=== PATIENT | male | born 1980 | race Caucasian/White ===

== ENCOUNTER 2017-06-24 01:07 | Emergency (ER) | payer OTHER ==
[~2017-06-24] VITALS: Ht 188 cm; Wt 93.0 kg
[2017-06-24 01:09] VITALS: TEMP 36.8; Ht 188 cm; Wt 93.0 kg
--- NOTE | 2017-06-24 01:46 | EMERGENCY ROOM VISIT NOTE ---
History Report prepared by Eduardo: Teddy Henao Under the Supervision of: Dr. Mesha Duran D.O. First contact with patient: 01:13 Chief Complaint: MENTAL HEALTH EVALUATION Stated Complaint: DEPRESSED,SUICIDAL THOUGHTS-DAY DREAMS OF IT History of Present Illness The patient is a 36 year old male who presents to the Emergency Room with concerns over his worsening mental status. The patient states that his girlfriend thought he should come into the Emergency Department this evening due to recent suicidal ideations. Per the girlfriend, the patient stated that he had a specific plan to hang himself this evening. She also notes that he has been having mood swings and his tempers have been flaring. The plan concerned the girlfriend because he has attempted to hang himself in the past. He has a history for bipolar disorder, depression, and anxiety. He is on medications for his psych disorders, but made note that his [place] and Wellbutrin prescriptions have not been filled. The patient recently moved to the area from [place] and has not found a new psychiatrist yet. He attempted to orange picker his prescriptions today and the [place] and Wellbutrin were not filled. The patient admits to drinking some alcohol throughout the past two weeks. He also admits to abusing Suboxone in the past, but has not recently. He has a history of turrets and ADHD. Source of History: patient, spouse/significant other Onset: This evening (suicidal threats) Position: other (Psych) Quality: other (Mental Status) Note: Positive suicidal ideation with plan. Review of Systems See HPI for pertinent positives & negatives. A total of 10 systems reviewed and were otherwise negative. Past Medical & Surgical Medical Problems: (1) ADHD (2) Anxiety (3) Bipolar disorder (4) Depression ADHD Anxiety Bipolar disorder Depression Family History Diabetes mellitus Hypertension Kidney disease Kidney stones Social History Smoking Status: Former Smoker Alcohol Use: occasionally Drug Use: other (Suboxone (past)) Marital Status: in relationship Housing Status: lives with significant other Current/Historical Medications Scheduled Bupropion (Wellbutrin Sr), 150 MG PO HS Bupropion (Wellbutrin-Xl), 300 MG PO QAM Buspirone Hcl (Buspar), 15 MG PO BID Doxepin Hcl (Doxepin), 100 MG PO QPM Fluoxetine (Prozac), 40 MG PO DAILY Gabapentin (Neurontin), 100 MG PO QID [place] Carbonate ([place] Carbonate), 150 MG PO DAILY Miscellaneous Medications Gabapentin (Neurontin), 400 MG PO Allergies Coded Allergies: Penicillins (Verified Allergy, Unknown, CHILDHOOD ALLERGY, 06/24/17) Physical Exam Vital Signs Date Time Temp Pulse Resp B/P (MAP) Pulse Ox O2 Delivery O2 Flow Rate FiO2 06/24/17 03:15 84 18 149/76 96 Room Air 06/24/17 01:09 36.8 91 16 155/70 95 Room Air Physical Exam General: Pleasant with obvious tic. HEENT: Head - normocephalic and atraumatic Pupils are equal, round, and reactive to light. Extraocular eye muscles are intact, and sclera are anicteric. Nose - moist nasal mucosa without discharge. Mouth - moist buccal mucosa. Chewing tobacco in lip. Oropharynx is nonerythematous and there is no tonsillar exudate or edema noted. Neck: Supple; no JVD, nuchal rigidity, cervical lymphadenopathy. Heart: Regular rate and rhythm. There is a normal S1 and S2 with no murmurs, clicks, or gallops appreciated. Lungs: Clear to auscultation bilaterally with no wheezes, rales, or rhonchi. Abdomen: Soft, completely nontender, nondistended, with good bowel sounds. There are no palpable pulsatile masses or hepatosplenomegaly. There is no guarding, rigidity, or rebound noted. Extremities: No evidence of cyanosis, clubbing, or edema. There are easily palpable peripheral pulses. Skin: warm and dry with good turgor and no rashes. Multiple tattoos present. Psych: Normal affect, but slightly depressed. Admits to suicidal ideation with plan to hang himself. Medical Decision & Procedures Laboratory Results 06/24/17 01:51 06/24/17 01:51 Test 06/24/17 01:20 06/24/17 01:51 Urine Opiates Screen POS (NEG) Urine Methadone, Qualitative NEG (NEG) Urine Barbiturates NEG (NEG) Urine Phencyclidine (PCP) Level NEG (NEG) Ur Amphetamine/Methamphetamine NEG (NEG) MDMA (Ecstasy) Screen POS (NEG) Urine Benzodiazepines Screen NEG (NEG) Urine Cocaine Metabolite NEG (NEG) Urine Marijuana (THC) NEG (NEG) Red Blood Count 4.52 M/uL (4.7-6.1) Mean Corpuscular Volume 83.0 fL (80-100) Mean Corpuscular Hemoglobin 29.9 pg (25-34) Mean Corpuscular Hemoglobin Concent 36.0 g/dl (32-36) RDW Standard Deviation 39.5 fL (36.4-46.3) RDW Coefficient of Variation 13.1 % (11.5-14.5) Mean Platelet Volume 12.6 fL (7.4-10.4) Platelet Estimate DECREASED Anion Gap 7.0 mmol/L (3-11) Est Creatinine Clear Calc Drug Dose 84.0 ml/min Estimated GFR () 73.9 Estimated GFR (Non- 63.7 BUN/Creatinine Ratio 9.1 (10-20) Calcium Level 8.5 mg/dl (8.5-10.1) Thyroid Stimulating Hormone (TSH) 0.629 uIu/ml (0.300-4.500) Chemistry Specimen Hemolysis Salicylates Level < 1.7 mg/dl (2.8-20) Acetaminophen Level < 2 ug/ml (10-30) [place] Level < 0.2 mMOL/L (0.6-1.2) Ethyl Alcohol mg/dL < 3.0 mg/dl (0-3) Laboratory results per my review. ED Course 0129: Past medical records reviewed. The patient was evaluated in room A5. A complete history and physical exam was performed. Labs were drawn as above. 0333: I spoke with the patient at this time. He is agreeable to inpatient stay at any institution. He notes having chronic low platelets. 0348: The patient is being evaluated by the staff of [address] [place] [address] at this time. 0407: The bed search is underway for the patient's inpatient stay at this time. 0548: Bed search has not resulted in any open beds around the area at this time. [facility] has beds open. [facility] is being called for placement now. 0630: This patient will be signed out to Dr. Baez at change of shift. Medical Decision The patient is a 36 year old male who presents to the Emergency Department for a mental health evaluation. Differential Diagnosis includes; Mediation noncompliance, exacerbation of bipolar, anxiety, suicidal ideation with plan. Laboratory Results were reviewed and show; Normal white count, hemoglobin of 13.5, platelets at 105, normal TSH and renal function, glucose of 110 Toxicology screening reveals; negative Alcohol, Tylenol and Aspirin. [place] is less the 0.2 Positive for opiates and MDMA. The patient has a history of bipolar disorder with depression. He has had previous suicide attempts. He has not been taking some of his medications during a transition from [place] to [facility]. He has had thoughts of pain himself. He is willing to admit himself voluntarily. 201 paperwork has been filled out. The case was signed out to Dr. Baez awaiting bed placement. Impression Primary Impression: Suicidal ideation Scribe Attestation The scribe's documentation has been prepared under my direction and personally reviewed by me in its entirety. I confirm that the note above accurately reflects all work, treatment, procedures, and medical decision making performed by me. Departure Information Dispostion Still a Patient (This patient will be signed out to Dr. Baez at change of shift. ) Referrals No Doctor, Assigned (PCP) Patient Instructions My [facility]
[2017-06-24 02:38] LABS: BUN/CREATININE RATIO 9.1 (10-20); CALCIUM 8.5 mg/dl (8.5-10.1); CREATININE 1.4 mg/dl (0.60-1.40); POTASSIUM 3.8 mmol/L (3.5-5.1); THYROID STIMULATING HORMONE 0.629 uIu/ml (0.300-4.500)
[2017-06-24 02:47] LABS: HEMATOCRIT 37.5 % (42-52); MEAN CORPUSCULAR HEMOGLOBIN 29.9 pg (25-34); MEAN PLATELET VOLUME 12.6 fL (7.4-10.4); PLATELET COUNT 105 K/uL (130-400); PLT ESTIMATE DECREASED; RED BLOOD COUNT 4.52 M/uL (4.7-6.1); WHITE BLOOD COUNT 7.17 K/uL (4.8-10.8)
[2017-06-24 02:55] LABS: BENZODIAZEPINE, URINE NEG (NEG); COCAINE,URINE NEG (NEG); PHENCYCLIDINE, URINE NEG (NEG)
[2017-06-24] MEDS ORDERED: BUSP15TA70 PO (03:09)
[2017-06-24] MEDS ORDERED: FLUO40CA8 PO (03:09)
[2017-06-24] MEDS ORDERED: GABA1CAP5 PO (03:10)
[2017-06-24] MEDS ORDERED: DOXE100C4 PO (03:10)
[2017-06-24] MEDS ORDERED: GABA-112 PO (03:10)
[2017-06-24] MEDS ORDERED: LITH150C6 PO (03:12)
[2017-06-24] MEDS ORDERED: BUPRTAB51 PO (03:12)
[2017-06-24] MEDS ORDERED: BUPR-79 PO (03:12)
[2017-06-24 03:36] LABS: ACETAMINOPHEN < 2 ug/ml (10-30); LITHIUM < 0.2 mMOL/L (0.6-1.2)
[2017-06-24] MEDS ORDERED: BusPIRone 15 MG TAB PO SCH (09:00)
[2017-06-24] MEDS ORDERED: GABAPENTIN 400 MG CAP PO SCH (09:00)
[2017-06-24] MEDS ORDERED: FLUOXETINE HCL 20 MG CAP PO ONE (09:00)
[2017-06-24] MEDS ORDERED: BuPROPion XL 300 MG TABCR PO SCH (09:00)
[2017-06-24] MEDS ORDERED: LITHIUM CARBONATE 300 MG TAB PO SCH (09:00)
[2017-06-24] MEDS ORDERED: GABAPENTIN 100 MG CAP PO SCH (09:00)
[2017-06-24 12:45] VITALS: BP 121/76; PULSE 79; O2SAT 98
--- NOTE | 2017-06-24 15:45 | EMERGENCY ROOM VISIT NOTE ---
ED Visit Note First contact with patient: 07:08 36 yr old male with long psychiatric history arrives with suicidal ideation and wish for inpatient mental health treatment. Initially evaluated and medically cleared by Dr Duran. 201 petition signed and then he was signed out to me awaiting mental health placement. Accepted to [facility] for further treatment and evaluation.
[2017-06-24] MEDS ORDERED: DOXEPIN HCL 50 MG CAP PO SCH (21:00)
[2017-06-24] MEDS ORDERED: BuPROPion SR 150 MG TABCR PO SCH (21:00)
[2017-06-26 12:44] LABS: COD UR NEGATIVE NG/ML (CUTOFF=50); HYDROCOD UR NEGATIVE NG/ML (CUTOFF=50); HYDROMOR UR NEGATIVE NG/ML (CUTOFF=50); MORPHINE UR 262 NG/ML (CUTOFF=50); NORHYDROCODONE CONF UR NEGATIVE NG/ML (CUTOFF=50); OXYMORPH UR NEGATIVE NG/ML (CUTOFF=50)
== END 2017-06-24 12:46 ==
LOC: EDBD 01:08 → C.EDB 01:08 → C.EDA 12:46
DX: F31.9 Bipolar disorder, unspecified (principal); R45.851 Suicidal ideations; F41.9 Anxiety disorder, unspecified; F90.9 Attention-deficit hyperactivity disorder, unspecified type; Z87.891 Personal history of nicotine dependence; Z79.899 Other long term (current) drug therapy

== ENCOUNTER 2017-07-02 01:55 | Emergency (ER) | payer OTHER ==
[~2017-07-02] VITALS: Ht 188 cm; Wt 90.7 kg
[~2017-07-02 01:55] MED LIST: BUPR-79 PO; BUPRTAB51 PO; BUSP15TA70 PO; DOXE100C4 PO; FLUO40CA8 PO; GABA-112 PO; GABA1CAP5 PO; LITH150C6 PO
[2017-07-02 01:59] VITALS: TEMP 36.8; Ht 188 cm; Wt 90.7 kg
[2017-07-02] MEDS ORDERED: FLUO10CA48 PO (02:45)
[2017-07-02] MEDS ORDERED: GABA1CAP4 PO (02:46)
[2017-07-02] MEDS ORDERED: LITH1TAB PO (02:47)
[2017-07-02 03:22] LABS: BASO % 0.2 %; BASO ABS # 0.03 K/uL (0-0.2); COMPLETE YES; EOS % 2.5 %; HEMATOCRIT 39.3 % (42-52); IG% 0.2 %; LYMPH % 12.3 %; LYMPH ABS # 1.59 K/uL (1.2-3.4); MEAN CELL VOLUME 82.7 fL (80-100); MEAN CORPUSCULAR HEMOGLOBIN 28.2 pg (25-34); MEAN CORPUSCULAR HGB CONC 34.1 g/dl (32-36); MEAN PLATELET VOLUME 12.4 fL (7.4-10.4); MONO % 10.8 %; PLATELET COUNT 131 K/uL (130-400); RED BLOOD COUNT 4.75 M/uL (4.7-6.1); WHITE BLOOD COUNT 12.91 K/uL (4.8-10.8)
[2017-07-02 03:29] LABS: BUN/CREATININE RATIO 9.4 (10-20); CALCIUM 8.9 mg/dl (8.5-10.1); CREATININE 1.6 mg/dl (0.60-1.40); MAGNESIUM 2.2 mg/dl (1.8-2.4); POTASSIUM 3.5 mmol/L (3.5-5.1)
[2017-07-02 03:40] LABS: ALB/GLOB RATIO 1.1 (0.9-2); THYROID STIMULATING HORMONE 1.7 uIu/ml (0.300-4.500)
[2017-07-02] MEDS ORDERED: XYLOCAINE 1%/SOD BICARB 20 ML VIAL INFIL ONE (04:15)
[2017-07-02] MEDS ORDERED: ACETAMINOPHEN 500 MG TAB PO STA (04:52)
[2017-07-02] MEDS ORDERED: CEPHALEXIN 500MG HOME PACK 1 EA BTL PO ONE (05:45)
[2017-07-02] MEDS ORDERED: CEPH500C PO (05:49)
--- NOTE | 2017-07-02 05:52 | EMERGENCY ROOM VISIT NOTE ---
History First contact with patient: 02:22 Chief Complaint: FALL Stated Complaint: LAC UNDER NOSE,CUT HAND,POSS CONCUSION History of Present Illness The patient is a 36 year old male who presents to the Emergency Room with complaints of a fall which occurred 12 hours ago. The patient states that his legs spasmed and gave out, and he fell, striking his face on a doorway. He states that since breaking his toe 3 months ago, he has had frequent leg spasms and episodes of the legs giving out. He reports he feels he had a loss of consciousness of about 10 seconds after the fall. He complains of low back pain. He reports bruising to the right elbow and left wrist. He rates his overall discomfort a 10/10. His tetanus is up-to-date. Review of Systems A complete 10 point review of systems was reviewed with the patient with pertinent positives and negatives as per history of present illness. All else were negative. Past Medical/Surgical History Medical Problems: (1) ADHD (2) Anxiety (3) Bipolar disorder (4) Depression Family History Diabetes mellitus Hypertension Kidney disease Kidney stones Social History Smoking Status: Former Smoker Alcohol Use: occasionally Drug Use: other Marital Status: in relationship Housing Status: lives with significant other Current/Historical Medications Scheduled Bupropion (Wellbutrin Sr), 150 MG PO QPM Bupropion (Wellbutrin-Xl), 300 MG PO QAM Buspirone Hcl (Buspar), 15 MG PO BID Cephalexin Monohydrate (Keflex), 500 MG PO QID Doxepin Hcl (Doxepin), 100 MG PO QPM Fluoxetine (Prozac), 10 MG PO DAILY Gabapentin (Gabapentin), 900 MG PO QID [place] Carbonate Ext Rel (Lithobid Ext Rel), 900 MG PO DAILY Physical Exam Vital Signs Date Time Temp Pulse Resp B/P (MAP) Pulse Ox O2 Delivery O2 Flow Rate FiO2 07/02/17 06:04 98 18 112/63 96 07/02/17 04:45 91 18 112/59 95 Room Air 07/02/17 01:59 36.8 113 20 123/65 96 Room Air Physical Exam VITALS: Vitals are noted on the nurse's note and reviewed by myself. Vital signs stable. GENERAL: This is a 36-year-old male, in no acute distress, nondiaphoretic, well- developed well-nourished. SKIN: There is a 4 cm laceration just inferior to the left nostril which extends through the nasolabial fold. There is no active bleeding. There are no foreign bodies. HEAD: Normocephalic atraumatic. EARS: External auditory canals clear, tympanic membranes pearly linda without erythema or effusion bilaterally. No hemotympanum. EYES: Pupils equal round and reactive to light and accommodation. Conjunctivae without injection, sclerae without icterus. Extraocular movements intact. MOUTH: Mucous membranes moist. No lacerations. No chipped teeth. NECK: Supple without nuchal rigidity. Cervical spine is nontender. HEART: Regular rate and rhythm without murmurs gallops or rubs. LUNGS: Clear to auscultation bilaterally without wheezes, rales or rhonchi. MUSCULOSKELETAL: Full range of motion throughout. Strength 5/5 throughout. NEURO: Patient was alert and oriented to person place and time. Normal sensation to light and sharp touch. Medical Decision & Procedures ER Provider Diagnostic Interpretation: CT HEAD: No ICH, mass effect or edema. No skull fracture. CT FACIAL: No facial fractures. The paranasal sinuses show minimal scattered mucosal thickening and mastoid air cells are clear. No unexpected foreign bodies. Globes are intact. CT L SPINE: No acute or healing fracture or malalignment. Moderate degenerative disc disease at L4-L5. Multiple punctate and small nonobstructing calyceal calculi bilaterally. Radiologist: Bear Zamora MD Laboratory Results 07/02/17 02:17 Red Blood Count 4.75, Mean Corpuscular Volume 82.7, Mean Corpuscular Hemoglobin 28.2, Mean Corpuscular Hemoglobin Concent 34.1, Mean Platelet Volume 12.4, Neutrophils (%) (Auto) 74.0, Lymphocytes (%) (Auto) 12.3, Monocytes (%) (Auto) 10.8, Eosinophils (%) (Auto) 2.5, Basophils (%) (Auto) 0.2, Neutrophils # (Auto ) 9.55, Lymphocytes # (Auto) 1.59, Monocytes # (Auto) 1.39, Eosinophils # (Auto ) 0.32, Basophils # (Auto) 0.03 07/02/17 02:17 Test 07/02/17 02:17 White Blood Count 12.91 K/uL (4.8-10.8) Red Blood Count 4.75 M/uL (4.7-6.1) Hemoglobin 13.4 g/dL (14.0-18.0) Hematocrit 39.3 % (42-52) Mean Corpuscular Volume 82.7 fL (80-100) Mean Corpuscular Hemoglobin 28.2 pg (25-34) Mean Corpuscular Hemoglobin Concent 34.1 g/dl (32-36) Platelet Count 131 K/uL (130-400) Mean Platelet Volume 12.4 fL (7.4-10.4) Neutrophils (%) (Auto) 74.0 % Lymphocytes (%) (Auto) 12.3 % Monocytes (%) (Auto) 10.8 % Eosinophils (%) (Auto) 2.5 % Basophils (%) (Auto) 0.2 % Neutrophils # (Auto) 9.55 K/uL (1.4-6.5) Lymphocytes # (Auto) 1.59 K/uL (1.2-3.4) Monocytes # (Auto) 1.39 K/uL (0.11-0.59) Eosinophils # (Auto) 0.32 K/uL (0-0.5) Basophils # (Auto) 0.03 K/uL (0-0.2) RDW Standard Deviation 40.5 fL (36.4-46.3) RDW Coefficient of Variation 13.4 % (11.5-14.5) Immature Granulocyte % (Auto) 0.2 % Immature Granulocyte # (Auto) 0.03 K/uL (0.00-0.02) Anion Gap 5.0 mmol/L (3-11) Est Creatinine Clear Calc Drug Dose 73.5 ml/min Estimated GFR () 62.9 Estimated GFR (Non- 54.2 BUN/Creatinine Ratio 9.4 (10-20) Calcium Level 8.9 mg/dl (8.5-10.1) Magnesium Level 2.2 mg/dl (1.8-2.4) Total Bilirubin 0.7 mg/dl (0.2-1) Aspartate Amino Transf (AST/SGOT) 25 U/L (15-37) Alanine Aminotransferase (ALT/SGPT) 34 U/L (12-78) Alkaline Phosphatase 62 U/L (45-117) Total Protein 6.9 gm/dl (6.4-8.2) Albumin 3.6 gm/dl (3.4-5.0) Globulin 3.3 gm/dl (2.5-4.0) Albumin/Globulin Ratio 1.1 (0.9-2) Thyroid Stimulating Hormone (TSH) 1.700 uIu/ml (0.300-4.500) Ethyl Alcohol mg/dL < 3.0 mg/dl (0-3) Medications Administered Medications (Trade) Dose Ordered Sig/Corwin Route Start Time Stop Time Status Last Admin Dose Admin Acetaminophen (Tylenol Tab) 1,000 mg NOW STAT PO 07/02/17 04:52 07/02/17 04:54 DC 07/02/17 04:57 1,000 MG Cephalexin Monohydrate (Keflex 500MG Home Pack) 1 homepack NOW ONCE PO 07/02/17 05:45 07/02/17 05:46 DC 07/02/17 05:57 1 HOMEPACK Procedure Verbal consent was obtained to perform the procedure. Using sterile technique the wound was cleaned with Betadine. The area was sterilely draped. 6 ml of 1% buffered lidocaine was used to anesthetize the laceration. Once the patient was anesthetized, the wound was copiously irrigated under pressure with sterile saline. The wound was explored and there were no deep structures injured such as tendons, bone, or significant blood vessels. The laceration was repaired using 9 simple interrupted 6-0 nylon sutures with the wound edges being well approximated. The patient tolerated the procedure well. Hemostasis was achieved. The patient was given Tylenol and an additional dose of Keflex. ED Course The patient was evaluated as above. Labs were drawn and IV access was obtained. Patient was medicated with Tylenol for pain. CT scans of the head and face were performed and read by nadia as above. Laceration repair was performed as noted above. Discharge instructions were reviewed with the patient. The patient verbalized understanding of my assessment and treatment plan and was discharged home in good condition. Medical Decision Differential diagnosis includes muscle spasms, seizures, Tourette's disorder, facial fracture, laceration, among others. The patient is a 36-year-old male who presents today complaining of a laceration to the face. CT of the head and facial bones was performed with no acute fractures or intracranial findings. Labs were drawn due to the patient's complaint of his legs giving out frequently. There was a leukocytosis of unclear significance. No concerning electrode abnormalities. A CT of the lumbar spine was performed due to the back pain and also patient's complaint of weakness of the legs. This was unremarkable. The symptoms that the patient is describing may be secondary to his known Tourette's syndrome. He was instructed to follow-up with a primary care provider for further evaluation of this ongoing symptoms. His laceration was repaired as noted above. As the patient did not present for laceration repair until 12 hours after the injury, he will be placed on Keflex to prevent infection. Based on the patient's presentation and work up, I feel the patient is stable for outpatient treatment. The patient was educated to return to the emergency department for any worsening of their current condition or new/concerning symptoms. He will follow up with his PCP. Medication Reconcilliation Current Medication List: was personally reviewed by me Blood Pressure Screening Patient's blood pressure: Normal blood pressure Impression Primary Impression: Facial laceration Additional Impression: Fall Departure Information Dispostion Home / Self-Care Condition GOOD Prescriptions Cephalexin Monohydrate (Keflex) 500 Mg Cap 500 MG PO QID for 6 Days, #24 CAP Prov: Jeanie Greenfield ., CAPO 07/02/17 Referrals No Doctor, Assigned (PCP) Patient Instructions My [facility] Additional Instructions You have received 9 sutures on your face. These sutures are NOT dissolvable and WILL need to be removed by a health care provider in 7 days. You can return to the Emergency Department or contact your Primary Care Provider to have the sutures removed. Keflex as prescribed for a total of 7 days to prevent infection. Proper wound care is essential for adequate wound healing and infection prevention. You can shower and clean the wound with soap and water. Do not scour over the wound, pat dry with a towel. Do not submerse the wound (i.e. bathe or dish wash) until the sutures have been removed. You can use an antibiotic ointment with a dressing over the wound for the next 3-4 days. After this time you may leave the wound dry and open to the air. If crust develops over the wound you can use a Q-tip to apply a 1:1 peroxide:water solution to clean the wound. Look for signs of infection of the wound including: increased pain, swelling, foul discharge, streaking, or increased temperature. If any of these are noticed you should return to the Emergency Department for further assessment and treatment. As with any laceration you may have received nerve damage to the surrounding tissues. This damage may or may not be permanent. You should keep the area covered with sunscreen for the first 6 months to 1 year when at risk for exposure to help minimize scarring. You can also use scar reducing creams or Vitamin E oil to help minimize scarring. For pain control, you can use the following [id number] medicines (if >12 yo): - Regular strength (325mg/tab) Tylenol (acetaminophen) 2 tabs every 4-6 hours as needed. Do not exceed 12 tablets in a 24 hour period. Avoid taking more than 4 grams (4000 mg) of Tylenol per day. This includes any other sources of acetaminophen you may take on a regular basis. - Regular strength (200 mg/tab) Advil (ibuprofen) 1-2 tabs every 4-6 hours as needed. Do not exceed a dose of 3200 mg per day. Return to the emergency department if your symptoms worsen despite treatment course outlined above. Problem Qualifiers Primary Impression: Facial laceration Encounter type: initial encounter Qualified Codes: S01.81XA - Laceration without foreign body of other part of head, initial encounter Additional Impression: Fall Encounter type: initial encounter Qualified Codes: W19.XXXA - Unspecified fall, initial encounter
[2017-07-02 06:04] VITALS: BP 112/63; PULSE 98; O2SAT 96
--- NOTE | 2017-07-02 07:11 | DIAGNOSTIC IMAGING REPORT ---
LUMBAR SPINE WITHOUT CLINICAL HISTORY: 36 years-old Male presenting with fall, back pain, pt states legs give out. TECHNIQUE: Multidetector CT of the lumbar spine was performed without the use of intravenous contrast. IV contrast: None. A dose lowering technique was used consistent with the principles of ALARA (as low as reasonably achievable). COMPARISON: None. CT DOSE (mGy.cm): The estimated cumulative dose is 627.10 mGy.cm. FINDINGS: Machine Stemmer topogram: Unremarkable. Normal lumbar lordosis. Vertebral body heights and alignment maintained. Lucent lesion in the L4 vertebral body, indeterminate but likely hemangioma. Mild intervertebral disc height loss at L4-5, where there is mild disc bulge effacing the ventral thecal sac. No significant osseous neural foraminal narrowing, however, mild disc bulge at L5-S1 results in mild bilateral neural foraminal narrowing. No acute fracture or subluxation. Paraspinal musculature normal. Remaining soft tissues remarkable for bilateral nonobstructing renal calculi, the largest in the interpolar region of the left kidney measuring 4 mm. No hydronephrosis. IMPRESSION: 1. No acute osseous injury of the lumbar spine. 2. Mild degenerative change at L4-5 and L5-S1 further described above with mild bilateral neural foraminal narrowing. 3. Bilateral nonobstructing renal calculi. Electronically signed by: Elder Saleh M.D. 07/02/2017 7:10 AM Dictated Date/Time: 07/02/2017 7:05 AM
--- NOTE | 2017-07-02 07:12 | DIAGNOSTIC IMAGING REPORT ---
CT SCAN OF THE BRAIN WITHOUT IV CONTRAST CLINICAL HISTORY: Fall with head injury. COMPARISON STUDY: No priors. TECHNIQUE: Unenhanced axial CT scan of the brain is performed from the vertex to the skull base. Automated dose control exposure was utilized. A dose lowering technique was utilized adhering to the principles of ALARA. FINDINGS: Brain parenchyma: The brain parenchyma is normal in appearance. There is no hemorrhage, mass effect, or evidence of acute territorial ischemia by CT criteria. [place]-white matter is preserved. No extra-axial fluid collection is seen. Ventricles, sulci, cisterns: Normal in configuration. Intracranial vasculature: The visualized intracranial vasculature at the skull base is normal in appearance. Calvarium: There is no depressed calvarial fracture. Sinuses and mastoids: The visualized paranasal sinuses are clear. The mastoid air cells are well pneumatized. Orbits: The bony orbits are grossly intact. IMPRESSION: No acute intracranial abnormality. Electronically signed by: Eliseo Cisneros M.D. 07/02/2017 7:11 AM Dictated Date/Time: 07/02/2017 7:09 AM
--- NOTE | 2017-07-02 07:13 | DIAGNOSTIC IMAGING REPORT ---
MAXILLOFACIAL CT CT DOSE: HISTORY: fall, head injury, left facial injury TECHNIQUE: Multiaxial CT images of the maxillofacial region were performed and reformatted in the coronal plane without the use of contrast. A dose lowering technique was utilized adhering to the principles of ALARA. COMPARISON: None. FINDINGS: The visualized cervical spine, skull base, pterygoid plates, nasal bones, lamina papyracea, orbital floors, mandible, and zygomatic arches are intact. No fractures. The orbits are unremarkable. Small amount subcutaneous gas within the left upper lip. This could represent a soft tissue laceration. IMPRESSION: No fractures within the maxillofacial region. Small amount of subcutaneous gas within the left upper lip. This could be related to a soft tissue laceration. Clinical correlation recommended. Electronically signed by: Arnel Zuñiga M.D. 07/02/2017 7:12 AM Dictated Date/Time: 07/02/2017 7:08 AM
== END 2017-07-02 06:05 | disposition home or self-care (01) ==
LOC: C.EDB 01:58 → C.EDA 06:05
DX: S01.81XA Laceration without foreign body of other part of head, initial encounter (principal); S09.93XA Unspecified injury of face, initial encounter; S50.01XA Contusion of right elbow, initial encounter; S60.212A Contusion of left wrist, initial encounter; W18.30XA Fall on same level, unspecified, initial encounter; M54.5 Low back pain; F95.2 Tourette's disorder; F90.9 Attention-deficit hyperactivity disorder, unspecified type; F41.9 Anxiety disorder, unspecified; F32.9 Major depressive disorder, single episode, unspecified; F31.9 Bipolar disorder, unspecified; Z87.891 Personal history of nicotine dependence; Z83.3 Family history of diabetes mellitus; Z82.49 Family history of ischemic heart disease and other diseases of the circulatory system; Z84.1 Family history of disorders of kidney and ureter